=== PATIENT | male | born 1950 | race Caucasian/White ===

== ENCOUNTER → 2019-05-02 | Outpatient (CLI) | payer MEDICARE ==
[2019-05-02 09:49] LABS: ABSOLUTE EOSINOPHILS 0.1 thou/uL (0.0-0.7); ABSOLUTE LYMPHOCYTES 0.8 thou/uL (0.8-5.3); ABSOLUTE MONOCYTES 0.8 thou/uL (0.0-1.2); ABSOLUTE NEUTROPHILS 6.5 thou/uL (1.6-8.1); BASOPHILS 0.3 %; EOSINOPHILS 1.1 %; HEMATOCRIT 39.5 % (42.0-52.0); HEMOGLOBIN 13.2 gm/dL (14.0-18.0); LYMPHOCYTES 9.9 %; MCH 31.7 pg (26.0-34.0); MCHC 33.5 g/dL (28.0-37.0); MCV 94.6 fL (80.0-100.0); MONOCYTES 9.5 %; MPV 7.1 fl. (7.2-11.1); NUCLEATED RBCS 0 /100WBC; PLATELET COUNT* 243 thou/uL (150-400); POLYS 79.2 %; RBC 4.17 mil/uL (4.50-6.00); RDW-CV 13.4 % (10.5-14.5); WBC 8.2 thou/uL (4.0-11.0)
[2019-05-02 10:21] LABS: ALBUMIN 3.7 g/dL (3.4-5.0); CALCIUM 8.6 mg/dL (8.5-10.1); CREATININE 0.9 mg/dL (0.6-1.3); POTASSIUM 3.4 mmol/L (3.5-5.1); TOTAL BILIRUBIN 0.4 mg/dL (<0.1-1.0)
[2019-05-02 10:55] LABS: ESR (SEDRATE) 12 mm/hr (0-20)
[2019-05-03 06:06] LABS: HEPATITIS B SURFACE AG Negative (Negative)
== END ==
LOC: M.LAB 09:19
PROVIDERS: Internal Medicine Gastroenterology
DX: K51.30 Ulcerative (chronic) rectosigmoiditis without complications (principal)

== ENCOUNTER → 2019-07-23 | Outpatient (CLI) | payer MEDICARE ==
[2019-07-23 08:44] LABS: ABSOLUTE EOSINOPHILS 0.2 thou/uL (0.0-0.7); ABSOLUTE MONOCYTES 0.6 thou/uL (0.0-1.2); ABSOLUTE NEUTROPHILS 4.9 thou/uL (1.6-8.1); BASOPHILS 0.5 %; EOSINOPHILS 2.6 %; HEMATOCRIT 39.2 % (42.0-52.0); HEMOGLOBIN 13.1 gm/dL (14.0-18.0); LYMPHOCYTES 15.4 %; MCH 31.4 pg (26.0-34.0); MCHC 33.5 g/dL (28.0-37.0); MCV 93.6 fL (80.0-100.0); MONOCYTES 9.2 %; MPV 6.6 fl. (7.2-11.1); NUCLEATED RBCS 0 /100WBC; PLATELET COUNT* 206 thou/uL (150-400); POLYS 72.3 %; RBC 4.19 mil/uL (4.50-6.00); RDW-CV 12.9 % (10.5-14.5); WBC 6.8 thou/uL (4.0-11.0)
[2019-07-23 09:00] LABS: ALBUMIN 3.6 g/dL (3.4-5.0); CALCIUM 8.8 mg/dL (8.5-10.1); POTASSIUM 3.9 mmol/L (3.5-5.1); TOTAL BILIRUBIN 0.5 mg/dL (<0.1-1.0); TOTAL PROTEIN 6.9 g/dL (6.4-8.2)
[2019-07-23 09:55] LABS: ESR (SEDRATE) 7 mm/hr (0-20)
== END ==
LOC: M.LAB 08:25
PROVIDERS: Internal Medicine Gastroenterology
DX: K51.90 Ulcerative colitis, unspecified, without complications (principal)

== ENCOUNTER → 2020-02-03 | Outpatient (CLI) | payer MEDICARE ==
[2020-02-03 08:48] LABS: ABSOLUTE MONOCYTES 0.8 thou/uL (0.0-1.2); ABSOLUTE NEUTROPHILS 6.4 thou/uL (1.6-8.1); BASOPHILS 0.4 %; EOSINOPHILS 0.5 %; HEMATOCRIT 41.9 % (42.0-52.0); HEMOGLOBIN 14.5 gm/dL (14.0-18.0); LYMPHOCYTES 12.4 %; MCH 32.7 pg (26.0-34.0); MCHC 34.5 g/dL (28.0-37.0); MCV 94.8 fL (80.0-100.0); MONOCYTES 9.6 %; MPV 6.7 fl. (7.2-11.1); NUCLEATED RBCS 0 /100WBC; PLATELET COUNT* 210 thou/uL (150-400); POLYS 77.1 %; RBC 4.43 mil/uL (4.50-6.00); RDW-CV 13.1 % (10.5-14.5); WBC 8.3 thou/uL (4.0-11.0)
[2020-02-03 09:02] LABS: CALCIUM 8.7 mg/dL (8.5-10.1); CREATININE 0.9 mg/dL (0.6-1.3); TOTAL BILIRUBIN 0.7 mg/dL (<0.1-1.0); TOTAL PROTEIN 7.6 g/dL (6.4-8.2)
[2020-02-03 11:27] LABS: ESR (SEDRATE) 2 mm/hr (0-20)
== END ==
LOC: M.LAB 08:33
PROVIDERS: Internal Medicine Gastroenterology
DX: K51.90 Ulcerative colitis, unspecified, without complications (principal)

== ENCOUNTER → 2020-03-10 | Outpatient (CLI) | payer MEDICARE | LOC: M.LAB 07:39 | PROVIDERS: ATTEND Internal Medicine Gastroenterology | DX: Z01.812 Encounter for preprocedural laboratory examination (principal); Z11.59 Encounter for screening for other viral diseases; K51.90 Ulcerative colitis, unspecified, without complications ==

== ENCOUNTER → 2020-03-19 | Outpatient (CLI) | payer MEDICARE ==
[2020-03-19 07:44] LABS: HEMATOCRIT 39.6 % (42.0-52.0); HEMOGLOBIN 13.7 gm/dL (14.0-18.0); MCH 32.5 pg (26.0-34.0); MCHC 34.6 g/dL (28.0-37.0); MCV 93.8 fL (80.0-100.0); MPV 7.3 fl. (7.2-11.1); NUCLEATED RBCS 0 /100WBC; PLATELET COUNT* 220 thou/uL (150-400); RBC 4.23 mil/uL (4.50-6.00); RDW-CV 13.6 % (10.5-14.5); WBC 7.7 thou/uL (4.0-11.0)
[2020-03-19 08:13] LABS: ALBUMIN 3.8 g/dL (3.4-5.0); CALCIUM 8.4 mg/dL (8.5-10.1); CREATININE 0.9 mg/dL (0.6-1.3); POTASSIUM 3.7 mmol/L (3.5-5.1); TOTAL BILIRUBIN 0.6 mg/dL (<0.1-1.0); TOTAL PROTEIN 7.2 g/dL (6.4-8.2)
[2020-03-19 08:41] LABS: ABSOLUTE LYMPHOCYTES 1.8 thou/uL (0.8-5.3); ABSOLUTE MONOCYTES 0.1 thou/uL (0.0-1.2); ABSOLUTE NEUTROPHILS 5.9 thou/uL (1.6-8.1); METAMYELOCYTES 1 %; PLATELET ESTIMATE ADEQUATE
[2020-03-19 09:08] LABS: ESR (SEDRATE) 3 mm/hr (0-20)
[2020-03-20 02:06] LABS: HEPATITIS B SURFACE AG Negative (Negative)
== END ==
LOC: M.LAB 07:10
PROVIDERS: ATTEND Internal Medicine Gastroenterology
DX: Z11.1 Encounter for screening for respiratory tuberculosis (principal); K51.90 Ulcerative colitis, unspecified, without complications

== ENCOUNTER → 2020-04-02 | Outpatient (CLI) | payer MEDICARE | LOC: M.LAB 13:50 | PROVIDERS: ATTEND Internal Medicine Gastroenterology | DX: Z11.1 Encounter for screening for respiratory tuberculosis (principal) ==

== ENCOUNTER → 2020-07-14 | Outpatient (CLI) | payer MEDICARE ==
[2020-07-14 07:46] LABS: ABSOLUTE EOSINOPHILS 0.1 thou/uL (0.0-0.7); ABSOLUTE MONOCYTES 0.5 thou/uL (0.0-1.2); ABSOLUTE NEUTROPHILS 3.5 thou/uL (1.6-8.1); BASOPHILS 0.6 %; EOSINOPHILS 1.2 %; HEMATOCRIT 39.3 % (42.0-52.0); HEMOGLOBIN 13.4 gm/dL (14.0-18.0); LYMPHOCYTES 19.2 %; MCH 31.8 pg (26.0-34.0); MCHC 34.1 g/dL (28.0-37.0); MCV 93.4 fL (80.0-100.0); MONOCYTES 9.6 %; MPV 6.7 fl. (7.2-11.1); NUCLEATED RBCS 0 /100WBC; PLATELET COUNT* 196 thou/uL (150-400); POLYS 69.4 %; RBC 4.21 mil/uL (4.50-6.00); RDW-CV 12.4 % (10.5-14.5)
[2020-07-14 08:01] LABS: ALBUMIN 3.9 g/dL (3.4-5.0); CALCIUM 8.9 mg/dL (8.5-10.1); CREATININE 0.9 mg/dL (0.6-1.3); POTASSIUM 3.7 mmol/L (3.5-5.1); TOTAL BILIRUBIN 0.7 mg/dL (<0.1-1.0); TOTAL PROTEIN 7.4 g/dL (6.4-8.2)
[2020-07-14 08:46] LABS: ESR (SEDRATE) 4 mm/hr (0-20)
== END ==
LOC: M.LAB 06:56
PROVIDERS: ATTEND Internal Medicine Gastroenterology
DX: D50.9 Iron deficiency anemia, unspecified (principal)

== ENCOUNTER → 2021-01-03 | Outpatient (CLI) | payer MEDICARE ==
[2021-01-03 07:58] LABS: ALBUMIN 4.2 g/dL (3.4-5.0); CALCIUM 9.4 mg/dL (8.5-10.1); CREATININE 0.9 mg/dL (0.6-1.3); POTASSIUM 3.7 mmol/L (3.5-5.1); TOTAL BILIRUBIN 0.6 mg/dL (<0.1-1.0); TOTAL PROTEIN 7.5 g/dL (6.4-8.2)
[2021-01-03 08:37] LABS: HEMATOCRIT 41.7 % (42.0-52.0); HEMOGLOBIN 13.9 gm/dL (14.0-18.0); MCH 30.5 pg (26.0-34.0); MCHC 33.4 g/dL (28.0-37.0); MCV 91.4 fL (80.0-100.0); MPV 7.7 fl. (7.2-11.1); RBC 4.56 mil/uL (4.50-6.00); RDW-CV 13.1 % (10.5-14.5); WBC 5.1 thou/uL (4.0-11.0)
== END ==
LOC: M.LAB 07:30
PROVIDERS: ATTEND Internal Medicine Gastroenterology
DX: K51.90 Ulcerative colitis, unspecified, without complications (principal)